=== PATIENT | female | born 1980 | race Caucasian/White ===

== ENCOUNTER → 2018-11-10 11:04 | Outpatient (CLI) | payer OTHER, SELFPAY ==
[2018-11-10 12:00] LABS: Estradiol 202.5 pg/mL; Free T3 2.4 pg/mL (2.18-3.98); T4 Free Direct 1.22 ng/dL (0.76-1.46); Thyroid Stim Hormone (TSH) 0.59 uIU/mL (0.358-3.74)
[2018-11-10 12:01] LABS: Hemoglobin A1c 5.2 % (4.2-6.3); Progesterone Level 1.46 ng/mL (See Comment)
[2018-11-14 08:19] LABS: HPV Reflexed? NOT INDICATED
== END ==
PROVIDERS: Visit Provider Obstetrics & Gynecology
DX: N92.0 Excessive and frequent menstruation with regular cycle (principal); Z12.4 Encounter for screening for malignant neoplasm of cervix
CPT/HCPCS: 82670; 83036; 84144; 84403; 84439; 84443; 84481; 88175; G0145

== ENCOUNTER 2019-01-23 10:49 | Day surgery (SDC) | payer OTHER, SELFPAY ==
[2019-01-17 14:56] LABS: Hematocrit 39.4 % (37-47); Hemoglobin 13.3 g/dl (12.0-15.0); Mean Corp Hgb Conc 33.8 g/gl (32-36); Mean Corpuscular Hgb 31.9 pg (27.0-32.0); Mean Corpuscular Volume 94.5 fL (81-99); Mean Platelet Vol. 10.8 fl (6.2-12.0); Platelet Count 180 K/mm3 (150-450); RBC Distribution Width CV 12.3 % (11.6-14.6); RBC Distribution Width SD 41.8 fl (35.1-43.9); Red Blood Count 4.17 M/mm3 (4.2-5.4); White Blood Count 7.8 K/mm3 (4.4-11.0)
[2019-01-17 15:11] LABS: Scan Indicated on CBC? Y/N NO
--- NOTE | 2019-01-22 16:11 | PCM.HP.STD ---
Problem List (1) Menorrhagia with irregular cycle Status: Acute History of Present Illness Date of Admission: 01/23/19 Chief Complaint: 38 year old presents with menorrhagia and irregular menses. Office post menses ultrasound reveals thickened endometrium and polyp. Prior hydrosalpinx which has resolved. Excess estrogen noted on serum testing. The patient is a 38 year old F [] Past Medical History Allergies No Known Allergies Allergy (Verified 01/19/19 09:05) Home Medications: Ambulatory Orders Medication Instructions Recorded Adrenal Tlt 2 cap PO BID 01/19/19 Biolyte 4 ml PO DAILY 01/19/19 Chlorella 2 cap PO BID 01/19/19 Core Support 17 gm PO DAILY 01/19/19 Estrodim 1 cap PO DAILY 01/19/19 Inflamaway 1 cap PO BID 01/19/19 Levothyroxine Sodium 112 mcg PO MOTUWETHFRSA 01/19/19 Levothyroxine Sodium 224 mcg PO CHRISTINE 01/19/19 Liver/Gallbladder Drainage 1 tab PO TID 01/19/19 Methalation Donor 2 cap PO BID 01/19/19 Smoking Status: Never smoker Tobacco Use: Non-smoker Review of Systems Constitutional: Denies: Chills, Fever, Weight Change HEENT: Denies: Difficulty Hearing, Difficulty Swallowing, Nasal bleeding, Nasal Congestion, Sore Throat Cardiovascular: Denies: Chest Pain, Palpitations Respiratory: Denies: Shortness of Breath, Wheezing Gastrointestinal: Denies: Constipation, Diarrhea, Nausea, Vomiting Genitourinary: Denies: Dysuria, Frequency, Hematuria, Incontinence, Urgency Musculoskeletal: Denies: Joint Pain, Muscle pain Skin: Denies: Lesions, Skin Changes Neurological: Denies: Focal weakness, Numbness Psychiatric: Denies: Anxiety, Depression Endocrine: Denies: Heat/ Cold Intolerance Hematologic/ Lymphatic: Denies: Easy Bleeding VTE Information - Inpt Only VTE Present on Admission: No VTE Mechan Device Prophylaxis: SCD's VTE Pharm Prophylaxis ordered?: No Reason prophylaxis not ordered:: Treatment Not Indicated Subjective: Healthy appearing female correlating to stated age. No distress. - Physical Exam General: No apparent distress, Well developed, Well nourished HEENT: PERRLA, EOMI, Normocephalic Oral: Moist Mucosa Neck: No Nuchal Rigidity, Thyroid Normal Size and Texture Lungs: Clear to auscultation - bilaterally Cardiovascular: Regular rate, No murmurs, No rub noted Abdomen: Soft, Non Tender, Non-Distended, - - No guarding, hepatomegaly, splenomegaly, rebound tenderness Extremities: No cyanosis, No edema, No Calf Tenderness Skin: No rashes, Other - No ulcers, lesions Musculoskeletal: No Tenderness to Palpation of Joints or Extremities, No Muscle Wasting Lymphatic: No Cervical, Supraclavicular, or Inguinal Adenopathy Neurological: Cranial nerves II-XII grossly intact Psych/Mental Status: Alert and oriented to time, place, person, mood and affect Assessment/Plan All Active Problems Menorrhagia with irregular cycle (Acute) 1. Menorrhagia with irregular menses identified by ultrasound recommend D and C, hysteroscopy with possible polypectomy. The preop preparation, the intraop procedures and the postop recovery reviewed. The risks of bleeding, infection and other organ damage including bladder, bowel and uterine perforation reviewed, accepted and consented.
[2019-01-23] VITALS (7 sets, daily range): BP systolic 101–120; BP diastolic 57–73; PULSE 46–64; RESP 14–18; TEMP 36.4–37.3; O2SAT 98–100; BMI 27.9
[2019-01-23 11:28] LABS: Internal QC Validated? YES +Cl - CLEAR BKGD; Pregnancy, Urine Negative Negative
--- NOTE | 2019-01-23 12:30 | EMB_PTH ---
PATIENT: ANDREA BARAHONA LOC: [facility] [place] U#:[id number] AGE/SX: 38/F ROOM: RE01/23/[address]: Dr. Genoveva Verduzco MD : [id number] BED: DIS: 01/23/2019 SPEC #: [id number] RECD: 01/24/19 07:49 STATUS: SEGUNDO CHELSIE #: [id number] LAURA: 01/23/19 12:[address]: Genoveva Verduzco DEPT: SURGICAL PATHOLOGY RECD BY: Van Pagan ENTERED: 01/24/19 12:59 SP TYPE: ENDOM BX/C HUANG DR: Dr. Genet Aiken MD Tissues: Endometrium, NOS Procedures: Surgery Specimen Level IV HEADER OPERATION: Hysteroscopy, dilation and curettage PRE-OP DIAGNOSIS: Menorrhagia with irregular menses TISSUE SUBMITTED: Endometrium MICROSCOPIC DIAGNOSIS Endometrial curettings: Secretory endometrium. SJ:mahin 01/25/19 MICROSCOPIC DESCRIPTION Slides are reviewed. GROSS DESCRIPTION Received in fixative is one container labeled with the patient's name and designated endometrium. The specimen consists of multiple fragments of jurado hemorrhagic soft tissue that in aggregate measure 5 x 3 x 0.3 cm. The entire specimen is submitted in two cassettes. / SJ:mahin 01/24/19 TC:4 CPT: 47166
--- NOTE | 2019-01-23 12:56 | PCM.OPRPT ---
Problem List (1) Menorrhagia with irregular cycle Status: Acute Report of Operation Date of Procedure: 01/23/19 Pre-Operative Diagnosis: Menorrhagia and irregular menses Post-Operative Diagnosis: Same plus thickened endometrium Surgery/Procedure Performed:: D&C, diagnostic hysteroscopy Description of Surgical Findings:: Uterus was sounded to approximately 8-1/2 cm in a anterior position. Uterus was fully mobile. Good support to the uterus as well. Bilateral adnexa were benign. The endometrium was noted to be thickened throughout the entire cavity. Type of Anesthesia:: Local, MAC Anesthesiologist: Lenin Hayward Special Medications: 1% lidocaine, 10 cc. Cefotetan 2 g IV preop. Specimen's removed: Endometrium Drains: None Estimated Blood Loss (mL): Minimal Fluids Replaced: Lactated Ringer Description of Procedure: Patient was brought to the operating suite. Patient was transferred to the operating room table. Patient underwent a MAC anesthetic. Once found to be adequate, the patient was placed in dorsolithotomy position via the Antonio stirrups. She was prepped and draped in the normal sterile fashion. Please note that timeout had occurred upon reaching the room. Second timeout occurred before beginning the procedure. Patient was then prepped and draped in the normal sterile fashion. Weighted speculum was placed into the vagina and the anterior lip of the cervix was grasped and elevated 10 cc 1% lidocaine was placed to that cervix at 4 quadrants. Patient tolerated that procedure well. The uterus was sounded to 8-1/2 cm in anterior position. The cervical os was then easily dilated to accommodate a 5 mm hysteroscope. The hysteroscope was placed into the end uterine cavity with notation of thickened endometrium throughout. The hysteroscope was then removed followed by sharp curettage of the entire endometrial cavity and collection of that tissue. Polyp forceps were used to remove what appeared to be a polyp-like entity as well as any remaining tissue of the endometrium. Replacement of the hysteroscope into the endometrial cavity revealed removal of all tissue. The hysteroscope was then removed from the vaginal region as well as all instruments. The tenaculum site at the cervix was noted to be hemostatic. Sponge and instrument counts were correct x2. Patient was awakened in stable condition and taken to the recovery room to be discharged in the home setting today. Grafts/Implants Used: None - Complications None - Admit VTE Documentation VTE Present on Admission: No VTE Mechan Device Prophylaxis: SCD's VTE Pharm Prophylaxis ordered?: No Reason prophylaxis not ordered:: Treatment Not Indicated
--- NOTE | 2019-01-23 13:06 | DCINST_ITS ---
Discharge Diet: No Restrictions, - - increase water intake to 100 ounces minimum per day x 1 week after surgery Discharge Activity: Return to Normal Activity, May Shower, May Take a Tub Bath - in 2 weeks. Return to work on:: 01/24/19 May shower in (days): 0 - TODAY May resume sexual activity in: 2 weeks Weight Bearing Status: Full weight bearing Lifting Restrictions: none Call your doctor if you observe: Fever of 101 or Higher, Inability to urinate, Inability to have a bowel movement, Using more than one pad per hour, Shortness of breath Cleanse incision/area with: Soap & Water Additional Instructions: Ambulate often with periods of rest in between the week following surgery. Allergies/Adverse Reactions: Allergies No Known Allergies Allergy (Verified 01/19/19 09:05) Medications to take at Discharge Adrenal Tlt 2 cap PO BID 01/19/19 Biolyte 4 ml PO DAILY 01/19/19 Chlorella 2 cap PO BID 01/19/19 Core Support 17 gm PO DAILY 01/19/19 Estrodim 1 cap PO DAILY 01/19/19 Inflamaway 1 cap PO BID 01/19/19 Levothyroxine Sodium 112 mcg PO MOTUWETHFRSA 01/19/19 Levothyroxine Sodium 224 mcg PO CHRISTINE 01/19/19 Liver/Gallbladder Drainage 1 tab PO TID 01/19/19 Methalation Donor 2 cap PO BID 01/19/19 Primary Care Physician: Genet Aiken MD [Primary Care Provider] - Test Results: Test results from this visit will be discussed in further detail at your follow- up appointment, if applicable.
== END 2019-01-23 15:03 | disposition home or self-care (01) ==
LOC: SDC 10:51 → AC 10:54
PROVIDERS: Anesthesiology; Family Provider Family Medicine; PCP Family Medicine; Referring Provider Obstetrics & Gynecology; Visit Provider Obstetrics & Gynecology
PROC: 0UDB8ZZ Extraction of Endometrium, Via Natural or Artificial Opening Endoscopic (ICD-10-PCS; CPT 58558; principal; 2019-01-23 12:20)
DX: N92.1 Excessive and frequent menstruation with irregular cycle (principal); R93.89 Abnormal findings on diagnostic imaging of other specified body structures; E03.9 Hypothyroidism, unspecified; Z79.899 Other long term (current) drug therapy
CPT/HCPCS: 00952; 58558; 36415; 81025; 85027; 88305; J7120; J2405

== ENCOUNTER → 2019-02-22 | Outpatient (CLI) | payer OTHER, SELFPAY ==
[2019-01-23 11:40] VITALS: BMI 27.9
[2019-02-26 13:46] LABS: Hematocrit 37.6 % (37-47); Hemoglobin 12.8 g/dl (12.0-15.0); Mean Corpuscular Hgb 32.3 pg (27.0-32.0); Mean Corpuscular Volume 94.9 fL (81-99); Platelet Count 181 K/mm3 (150-450); RBC Distribution Width CV 12.2 % (11.6-14.6); RBC Distribution Width SD 41.5 fl (35.1-43.9); Red Blood Count 3.96 M/mm3 (4.2-5.4); White Blood Count 6.2 K/mm3 (4.4-11.0)
[2019-02-26 13:47] LABS: Scan Indicated on CBC? Y/N NO
[2019-02-26 13:55] LABS: Prothrombin Time (Protime)PT. 13.4 SECONDS (11.7-14.9)
[2019-02-26 13:56] LABS: Partial Thromboplast Time 30.9 Seconds (24.1-36.2)
[2019-02-26 14:24] LABS: Thyroid Stim Hormone (TSH) 8.54 uIU/mL (0.358-3.74)
== END | disposition home or self-care (01) ==
LOC: PAT 03-21 09:54
PROVIDERS: Referring Provider Obstetrics & Gynecology; Visit Provider Obstetrics & Gynecology
DX: Z01.818 Encounter for other preprocedural examination (principal); E07.9 Disorder of thyroid, unspecified
CPT/HCPCS: 36415; 84443; 85027; 85610; 85730; 86850; 86900

== ENCOUNTER → 2019-02-27 | Outpatient (CLI) | payer OTHER, SELFPAY ==
[2019-01-23 11:40] VITALS: BMI 27.9
== END | disposition home or self-care (01) ==
LOC: MFPLAB 16:23
PROVIDERS: Family Provider Family Medicine; PCP Family Medicine; Referring Provider Family Medicine; Visit Provider Family Medicine
DX: E03.9 Hypothyroidism, unspecified (principal)
CPT/HCPCS: 36415; 84439; 84443

== ENCOUNTER → 2019-03-08 | Outpatient (CLI) | payer OTHER, SELFPAY ==
[2019-01-23 11:40] VITALS: BMI 27.9
[2019-03-08 10:56] LABS: Estradiol 141.4 pg/mL; Glucose 86 mg/dL (74-106)
[2019-03-08 11:04] LABS: Insulin 7.9 mU/L (2.6-37.6); Progesterone Level 18.73 ng/mL (See Comment)
[2019-03-09 11:40] LABS: DHEA Sulfate 191.8 ug/dL (57.3-279.2)
== END | disposition home or self-care (01) ==
LOC: WOBLAB 08:42
PROVIDERS: Visit Provider Obstetrics & Gynecology
DX: N93.8 Other specified abnormal uterine and vaginal bleeding (principal); E28.0 Estrogen excess
CPT/HCPCS: 36415; 82533; 82627; 82670; 82947; 83525; 84144; 84403; 82626